=== PATIENT | male | born 1985 | race Caucasian/White ===

== ENCOUNTER 2023-02-18 21:28 | Emergency (ER) | payer BC, SELFPAY ==
--- NOTE | 2023-02-18 | DI.RAD.S_ITS ---
PROCEDURE: XR SHOULDER RT 1V INDICATIONS: RELOCATION TECHNIQUE: 1 view of the shoulder were acquired. COMPARISON: , CR, XR SHOULDER RT MIN 2V, 02/18/2023, 21:54. FINDINGS: Bones: There is interval reduction of the previously dislocated right glenohumeral joint. No discrete fracture identified on the current study. Visualized ribs appear intact. Soft tissues: No suspicious soft tissue calcifications. IMPRESSION: 1. Interval reduction of the previously dislocated right glenohumeral joint. Dictated by: Joey Chen M.D. on 02/19/2023 at 0:49 Approved by: Joey Chen M.D. on 02/19/2023 at 0:50
[2023-02-18 21:36] VITALS: BMI 25.0
[2023-02-18 21:46] VITALS: BP 171/96; PULSE 54; RESP 20; TEMP 36.4; O2SAT 97
--- NOTE | 2023-02-18 21:50 | DI.RAD.S_ITS ---
PROCEDURE: XR SHOULDER RT MIN 2V INDICATIONS: ? dislocation TECHNIQUE: 2 views of the shoulder were acquired. COMPARISON: None. FINDINGS: Bones: There is anterior dislocation of the right glenohumeral joint. There is slight depression of the superolateral humeral head suggestive of a Hill-Sachs impaction fracture. No discrete bony Bankart fracture identified. No suspicious bony lesions. Visualized ribs appear intact. Soft tissues: No suspicious soft tissue calcifications. IMPRESSION: 1. Anterior dislocation of the right glenohumeral joint. 2. Suspected Hill-Sachs impaction fracture. Dictated by: Joey Chen M.D. on 02/18/2023 at 23:12 Approved by: Joey Chen M.D. on 02/18/2023 at 23:13
--- NOTE | 2023-02-18 23:14 | ED_ITS ---
HPI - Extremity Injury (Upper) General Chief Complaint: Extremity Injury, Upper Stated Complaint: ? 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 He has significant pain, decreased range of motion due to both pain and mechanical obstruction. He denies any numbness or tingling. He has had prior left shoulder dislocations and is pretty convinced he's dislocated. He denies other symptoms. Related Data Allergies Allergy/AdvReac Type Severity Reaction Status Date / Time No Known Drug Allergies Allergy Verified 02/18/23 21:49 Review of Systems Review of Systems Narrative: GENERAL: Denies chills, fatigue, malaise, fever, sweats. HEENT: Denies sinus pain, ear pain, sore throat, difficulty swallowing, dizziness. RESPIRATORY: Denies dyspnea, cough, wheezing, hemoptysis, sputum. CARDIOVASCULAR: Denies chest pain, palpitations, orthopnea, edema, GASTROINTESTINAL: Denies nausea, vomiting, abdominal pain, diarrhea, constipation, melena. : Denies dysuria, frequency, incontinence, hematuria, urinary retention. MUSCULOSKELETAL: see HPI SKIN: Denies rash, skin lesions, or other NEUROLOGIC: Denies weakness, headache, numbness, change in speech, confusion, seizures, incoordination. PSYCHIATRIC: No concerning psychosocial issues. 12 point review of systems is negative except for those stated above Patient History Social History Smoking Status: Never smoker Smoking Status: Never smoker alcohol intake frequency: holidays/special occasions only Substance Use Type: does not use Exam Narrative Exam Narrative: GENERAL: [37] year old patient appears stated age. Well-developed patient, in mild distress. HEAD: Atraumatic. Normocephalic. EYES: Pupils equal round and reactive. Extraocular motions intact. No scleral icterus. No injection or drainage. ENT: Nose without bleeding, purulent drainage. Throat without erythema, tonsillar hypertrophy or exudate. Airway patent. NECK: Trachea midline. Non tender CARDIOVASCULAR: Regular rate and rhythm without murmurs, gallops, or rubs. RESPIRATORY: Clear to auscultation. Breath sounds equal bilaterally. No wheezes, rales, or rhonchi. GASTROINTESTINAL: Abdomen soft, non-tender, nondistended. EXTREMITIES:Decreased ROM of R shoulder with stepoff and deformity consistent with disclocation. No N/V compromise. BACK: Nontender without deformity or crepitance. No flank tenderness. NEURO: AOx3. SKIN: No rash or erythema of visible areas Initial Vital Signs Initial Vital Signs: Vital Signs Oxygen Delivery Method Room Air 02/18/23 21:36 Procedures Orthopedic Joint Reduction Joint #1: Time Out Performed: Yes Side: right Joint Reduction Location: shoulder Analgesia: procedural sedation Shoulder Technique Used (if applicable): traction/counter-traction and external rotation Post-reduction neuro exam: intact Post-reduction vascular: intact Post Reduction X-Ray Obtained: Yes Post Reduction X-Ray Results: reduced Splint Applied: Yes Patient Tolerated Procedure: Well Orthopedic Splinting/Casting Injury #1: Side: right Upper Extremity Injury Location: shoulder Upper Extremity Immobilizer: sling/shoulder immobilizer Post splinting neuro exam: intact Post splinting vascular exam: intact Placed by: Nursing Procedural Sedation Consent signed: Yes Time out performed: Yes Indication: fracture/dislocation reduction ASA Class: I Mallampati Airway Classification: Class I Preparation: ekg monitor tech applied, pulse oximeter, capnometry used, caba pplemental O2 applied, suction/airway equipment at bedside and IV secured IV Propofol dose (mg): 140 Intraservice time/total sedation time (min): 10 ED Sedation Level: Moderate (Concious) Patient Tolerated Procedure: Well Complications: none Course Orders Ordered: Discontinued Medications Propofol (Propofol 200 Mg/20 Ml Vial) 150 mg IV NOW ONE Stop: 02/18/23 23:49 Last Admin: 02/18/23 23:22 Dose: 150 mg Documented By: YASEMIN Vital Signs Vital signs: Vital Signs - 8 hr 02/18/23 21:36 02/18/23 21:46 Temperature 97.5 F L Pulse Rate 54 L Respiratory Rate 20 Blood Pressure 171/96 H Pulse Oximetry 97 Oxygen Delivery Method Room Air Room Air MDM - Extremity Injury (Upper) MDM Narrative Medical decision making narrative: [37] year old patient presents with shoulder deformity Multiple etiologies for patient's symptoms considered including, but not limited to: fracture vs. dislocation vs. other Prior Charts reviewed in our EMR Primary Historian: patient Imaging reviewed: anterior dislocation with subsequent reduction Patient's symptoms improved over duration of stay with above-stated therapies. Findings and discharge diagnosis discussed with patient/family followed by verbalization of understanding Return precautions discussed with patient/family whom verbalize understanding of diagnosis and plan Discharge Plan Departure Patient Disposition: Home Clinical Impression: Anterior shoulder dislocation Instructions: DI for Elbow Dislocation Activity Restrictions/Additional Instructions: *You have been diagnosed with [right shoulder dislocation] *What to do: *Please continue to take your regular medications as directed. [ ] New medication prescriptions sent to your pharmacy: [ ] [ ] New medication written as a paper prescription [x] Tylenol and occasional Motrin for pain *Please follow up with [[facility]] of [facility] in 2-3 days, call for an appointment. Let them know you were seen in the Emergency Department and that we ask that you be seen in follow up. We will electronically transmit a record of today's note if your PCP is in our system *Return to Emergency Department if you should have any new, worsening or concerning symptoms, such as [worsening pain, significant swelling, cold extremities, numbness, tingling, weakness or other bothersome symptoms Referrals: Lencho العلي MD [Physician] - Taina Ku MD [Physician] - Stand Alone Forms: Patient Portal/API
[2023-02-18] MEDS: propofoL 200 MG/20 ML VIAL 150 MG IV (23:22)
[2023-02-18 23:26] VITALS: PULSE 73; RESP 20; O2SAT 97
== END 2023-02-19 00:49 | disposition home or self-care (01) ==
PROVIDERS: Emergency Provider Emergency Medicine; Family Provider Nurse Practitioner
DX: S43.004A Unspecified dislocation of right shoulder joint, initial encounter (principal); Y93.79 Activity, other specified sports and athletics
CPT/HCPCS: 23650; 73020; 73030; 99152; 99284; J2704

== ENCOUNTER → 2023-03-12 07:35 | Outpatient (CLI) | payer BC, SELFPAY ==
--- NOTE | 2023-03-12 | DI.MRI.S_ITS ---
PROCEDURE: MR SHOULDER LT WO CON INDICATIONS: Recurrent dislocation, left and right shoulder TECHNIQUE: Noncontrast oblique coronal T2 fast spin echo with fat saturation, oblique sagittal T1 spin echo and T2 fast spin echo with fat saturation, axial T1 spin echo and T2 fast spin echo with fat saturation through the shoulder. COMPARISON: [facility] [place], CR, XR SHOULDER 2+ VIEWS BILATERAL, 02/27/2023, 11:13. FINDINGS: Image quality: Good Rotator cuff: Bulk: No significant atrophy Teres minor: Intact Supraspinatus: High-grade interstitial tear extending to the bursal surface. Infraspinatus: High-grade articular sided tear at the insertion. Subscapularis: Tendinosis and small interstitial tearing Bones and bursae: GH joint: Minimal to mild degenerative changes, no significant cartilage defect or subchondral edema/cystic formation. Anterior glenoid postsurgical changes. AC joint: There is significant edema at the distal end of the clavicle and AC capsule. Mild degenerative changes Humeral head: No acute edema. Scapula and acromion: Intact Bursa: Mild bursitis under the acromion Capsule: Labrum: Anterior labral defect is suspected, difficult to evaluate due to adjacent artifact. Suspected small superior labral tear also present, extending at the biceps anchor. Long head biceps tendon: Small split tear extending to the biceps anchor. IGHL: Mild pericapsular edema. Rotator interval: Preserved fat signal Soft tissues: Prominent axillary lymph nodes partially seen. Lungs are not well seen. IMPRESSION: Moderate edema of the distal clavicle and AC capsule, suspicious for acromioclavicular injury, without dislocation. There is underlying bursitis. Mild glenohumeral and underlying AC degenerative changes. Suspected anterior labral defect, with adjacent anterior glenoid postsurgical changes, difficult to evaluate due to artifact. Suspected small superior labral tear extending to the distal biceps tendon and biceps anchor. High-grade partial-thickness infraspinatus and supraspinatus tears. Dictated by: Kosta Tinoco M.D. on 03/12/2023 at 12:22 Approved by: Kosta Tinoco M.D. on 03/12/2023 at 12:32
--- NOTE | 2023-03-12 | DI.MRI.S_ITS ---
PROCEDURE: MR SHOULDER RT W CON INDICATIONS: Recurrent dislocation, left and right shoulder TECHNIQUE: After the administration of 12 mL of dilute intra-articular Gadolinium contrast, oblique coronal T1 and T2 spin echo with fat saturation, oblique sagittal T1 spin echo with and without fat saturation, oblique sagittal T2 fast spin echo with fat saturation, axial T1 spin echo with fat saturation through the shoulder. COMPARISON: [facility], [place], [place] SHOULDER INJECTION MR/CT RT, 03/12/2023, 8:33. [facility] [place] [place], CR, XR SHOULDER 2+ VIEWS BILATERAL, 02/27/2023, 11:13. FINDINGS: Image quality: Good Rotator cuff: Bulk: No significant atrophy Teres minor: Intact Supraspinatus: Moderate articular surface stripping and tear at the footplate. Infraspinatus: Intact Subscapularis: Intact Bones and bursae: GH joint: Distended with contrast. No significant degenerative changes. AC joint: Mild degeneration and capsular hypertrophy with edema. Humeral head: There is edema and Hill-Sachs deformity. Scapula and acromion: Overall intact. Bursa: Mild bursitis. No extension of contrast. Capsule: Labrum: Anterior inferior labral defect. There may also be a tiny anterior superior labral tear. Long head biceps tendon: Normally situated IGHL: Mild pericapsular edema Rotator interval: Contrast filled Soft tissues: No axillary adenopathy. Lungs are not well seen. IMPRESSION: [id number] Hill-Sachs deformity with a soft tissue Bankart, compatible with anterior dislocation. Possible tiny anterior superior labral tear also present. Articular surface stripping and tear at the distal supraspinatus. Mild AC degeneration. Dictated by: Kosta Tinoco M.D. on 03/12/2023 at 12:42 Approved by: Kosta Tinoco M.D. on 03/12/2023 at 12:47
--- NOTE | 2023-03-12 | DI.RAD.S_ITS ---
PROCEDURE: [place] SHOULDER INJECTION MR/CT RT INDICATIONS: Recurrent dislocation, left and right shoulder COMPARISON: [facility] [place], CR, XR SHOULDER 2+ VIEWS BILATERAL, 02/27/2023, 11:13. TECHNIQUE: The indications, alternatives, benefits, risks, and complications of the procedure were explained to the patient. Written informed consent was obtained and placed in the chart. The shoulder was examined fluoroscopically and a site for needle placement chosen for entry into the glenohumeral joint from an anterior approach. The skin was prepped and draped in a sterile fashion, and 1% lidocaine infiltrated from skin down to joint capsule. A spinal needle was inserted into the glenohumeral joint, and a small amount of iodinated contrast media injected to confirm intra-articular placement of the needle tip. This was followed by approximately 12 mL dilute solution of a gadolinium containing MR contrast agent. The needle was removed and a dressing was applied. The patient was given postprocedural instructions and sent to the MR suite for MR imaging. FINDINGS: A single fluoroscopic spot image demonstrates intra-articular location of injected iodinated contrast. IMPRESSION: Successful fluoroscopically guided administration of dilute Gadolinium solution into the shoulder joint for MR arthrogram. Dictated by: Royal Flannery M.D. on 03/12/2023 at 10:55 Approved by: Royal Flannery M.D. on 03/12/2023 at 10:56
== END ==
PROVIDERS: Family Provider Nurse Practitioner; Referring Provider Physician Assistant Medical; Visit Provider Physician Assistant Medical
DX: S43.004A Unspecified dislocation of right shoulder joint, initial encounter (principal); S46.011A Strain of muscle(s) and tendon(s) of the rotator cuff of right shoulder, initial encounter; M24.412 Recurrent dislocation, left shoulder; S46.012A Strain of muscle(s) and tendon(s) of the rotator cuff of left shoulder, initial encounter; M75.52 Bursitis of left shoulder; M75.51 Bursitis of right shoulder; M19.011 Primary osteoarthritis, right shoulder
CPT/HCPCS: 23350; 73221; 73222; 77002